=== PATIENT | male | born 1945 | race Caucasian/White ===

== ENCOUNTER 2024-09-10 01:38 | Observation (INO) | payer MEDICARE, OTHER ==
--- NOTE | 2024-09-10 02:41 | ED ---
Weakness HPI - General Chief complaint: Weakness Stated complaint: Weakness Time Seen by Provider: 09/10/24 02:16 Source: patient, EMS Mode of arrival: EMS - History of Present Illness Initial comments: This patient is an 79-year-old man who complains that he is feeling fatigued, having generalized weakness and feels like he is vibrating. The patient also states that he intermittently will have symptoms that feel like his epigastric area is tightening and going into his chest. Patient had similar episode on Friday and was seen at the [facility] in [place]. He states that he had CT of the brain, x-ray chest and labs and was then treated for suspected pneumonia. MD Complaint: generalized weakness, lack of energy, difficulty walking -: days(s) Location: generalized Consistency: intermittent Improves with: none Worsens with: none Associated Symptoms: chest pain, other - Related Data Allergies Allergy/AdvReac Type Severity Reaction Status Date / Time Penicillins Allergy Swelling Verified 09/10/24 01:48 Review of Systems ROS Statement: Those systems with pertinent positive or pertinent negative responses have been documented in the HPI. ROS Other: All systems not noted in ROS Statement are negative. Constitutional: Reports: weakness. Denies: fever, chills Eyes: Reports: vision change Respiratory: Reports: cough. Denies: dyspnea Cardiovascular: Reports: chest pain. Denies: palpitations, orthopnea, edema, syncope Gastrointestinal: Reports: abdominal pain. Denies: nausea, vomiting, diarrhea Genitourinary: Denies: dysuria, hematuria Musculoskeletal: Denies: back pain Skin: Denies: rash Neurological: Denies: headache, weakness Past Medical History Past Medical History: No Reported History History of Any Multi-Drug Resistant Organisms: None Reported Past Surgical History: Hernia Repair, Tonsillectomy Additional Past Surgical History / Comment(s): Hemorroid removal Past Psychological History: No Psychological Hx Reported Smoking Status: Light tobacco smoker Past Alcohol Use History: None Reported Past Drug Use History: None Reported General Exam General appearance: alert, in no apparent distress Head exam: Present: atraumatic, normocephalic Eye exam: Present: normal appearance. Absent: scleral icterus, conjunctival injection ENT exam: Present: normal oropharynx Neck exam: Present: normal inspection Respiratory exam: Present: normal lung sounds bilaterally. Absent: respiratory distress, wheezes, rales, rhonchi, stridor, accessory muscle use Cardiovascular Exam: Present: regular rate, normal rhythm, normal heart sounds. Absent: systolic murmur, diastolic murmur, rubs, gallop GI/Abdominal exam: Present: soft. Absent: distended, tenderness, guarding, rebound, rigid, mass Extremities exam: Present: normal inspection, normal capillary refill. Absent: pedal edema, calf tenderness Back exam: Present: normal inspection. Absent: CVA tenderness (R), CVA tenderness (L) Neurological exam: Present: alert Skin exam: Present: warm, dry, intact, normal color. Absent: rash Course Vital Signs 09/10/24 09/10/24 09/10/24 01:41 03:26 04:16 Temperature 97.3 F L Pulse Rate 66 72 67 Respiratory 18 16 16 Rate Blood Pressure 127/78 142/104 147/88 O2 Sat by Pulse 95 96 96 Oximetry 09/10/24 09/10/24 09/10/24 05:04 06:09 07:30 Temperature 97.5 F L Pulse Rate 62 61 67 Respiratory 16 16 18 Rate Blood Pressure 116/89 132/92 130/86 O2 Sat by Pulse 95 94 L 97 Oximetry EKG Findings - EKG Results: EKG: interpreted by ERMD, sinus rhythm (Rate 71 bpm) - Blocks, [place], Hypertrophy, ST Abn: AV and intraventricular conduction: right bundle branch block (fixed/intermittent, complete/incomplete) QRS axis and voltage: left axis deviation (-30 to -90) Medical Decision Making - Lab Data Result diagrams: 09/10/24 02:47 09/10/24 02:47 Lab Results 09/10/24 09/10/24 09/10/24 Range/Units 02:47 02:47 02:47 WBC 7.3 (3.8-10.6) k/uL RBC 4.40 (4.30-5.90) m/uL Hgb 15.1 (13.0-17.5) gm/dL Hct 44.2 (39.0-53.0) % MCV 100.6 H (80.0-100.0) fL MCH 34.3 (25.0-35.0) pg MCHC 34.1 (31.0-37.0) g/dL RDW 12.5 (11.5-15.5) % Plt Count 166 (150-450) k/uL MPV 7.5 Neutrophils % 57 % Lymphocytes % 32 % Monocytes % 7 % Eosinophils % 2 % Basophils % 1 % Neutrophils # 4.2 (1.3-7.7) k/uL Lymphocytes # 2.4 (1.0-4.8) k/uL Monocytes # 0.5 (0-1.0) k/uL Eosinophils # 0.1 (0-0.7) k/uL Basophils # 0.1 (0-0.2) k/uL PT 11.0 (10.0-12.5) sec INR 1.0 (<1.2) APTT 25.6 (22.0-30.0) sec Sodium 138 (137-145) mmol/L Potassium 4.7 (3.5-5.1) mmol/L Chloride 104 (98-107) mmol/L Carbon Dioxide 22 (22-30) mmol/L Anion Gap 12 mmol/L BUN 14 (9-20) mg/dL Creatinine 0.86 (0.66-1.25) mg/dL Est GFR (CKD-EPI)AfAm >90 (>60 ml/min/1.73 sqM) Est GFR (CKD-EPI)NonAf 82 (>60 ml/min/1.73 sqM) Glucose 87 (74-99) mg/dL Plasma Lactic Acid [place] (0.7-2.0) mmol/L Calcium 9.3 (8.4-10.2) mg/dL Magnesium 2.0 (1.6-2.3) mg/dL Total Bilirubin 0.6 (0.2-1.3) mg/dL AST 27 (17-59) U/L ALT 20 (4-49) U/L Alkaline Phosphatase 42 (38-126) U/L Troponin I (0.000-0.034) ng/mL Total Protein 8.1 (6.3-8.2) g/dL Albumin 4.5 (3.5-5.0) g/dL TSH 13.900 H (0.465-4.680) mIU/L Urine Color Urine Appearance (Clear) Urine pH (5.0-8.0) Ur Specific [place] (1.001-1.035) Urine Protein (Negative) Urine Glucose (UA) (Negative) Urine Ketones (Negative) Urine Blood (Negative) Urine Nitrite (Negative) Urine Bilirubin (Negative) Urine Urobilinogen (<2.0) mg/dL Ur Leukocyte Esterase (Negative) Influenza Type A (PCR) (Not Detectd) Influenza Type B (PCR) (Not Detectd) RSV (PCR) (Not Detectd) SARS-CoV-2 (PCR) (Not Detectd) 09/10/24 09/10/24 09/10/24 Range/Units 02:47 02:47 02:47 WBC (3.8-10.6) k/uL RBC (4.30-5.90) m/uL Hgb (13.0-17.5) gm/dL Hct (39.0-53.0) % MCV (80.0-100.0) fL MCH (25.0-35.0) pg MCHC (31.0-37.0) g/dL RDW (11.5-15.5) % Plt Count (150-450) k/uL MPV Neutrophils % % Lymphocytes % % Monocytes % % Eosinophils % % Basophils % % Neutrophils # (1.3-7.7) k/uL Lymphocytes # (1.0-4.8) k/uL Monocytes # (0-1.0) k/uL Eosinophils # (0-0.7) k/uL Basophils # (0-0.2) k/uL PT (10.0-12.5) sec INR (<1.2) APTT (22.0-30.0) sec Sodium (137-145) mmol/L Potassium (3.5-5.1) mmol/L Chloride (98-107) mmol/L Carbon Dioxide (22-30) mmol/L Anion Gap mmol/L BUN (9-20) mg/dL Creatinine (0.66-1.25) mg/dL Est GFR (CKD-EPI)AfAm (>60 ml/min/1.73 sqM) Est GFR (CKD-EPI)NonAf (>60 ml/min/1.73 sqM) Glucose (74-99) mg/dL Plasma Lactic Acid [place] 1.4 (0.7-2.0) mmol/L Calcium (8.4-10.2) mg/dL Magnesium (1.6-2.3) mg/dL Total Bilirubin (0.2-1.3) mg/dL AST (17-59) U/L ALT (4-49) U/L Alkaline Phosphatase (38-126) U/L Troponin I <0.012 (0.000-0.034) ng/mL Total Protein (6.3-8.2) g/dL Albumin (3.5-5.0) g/dL TSH (0.465-4.680) mIU/L Urine Color Urine Appearance (Clear) Urine pH (5.0-8.0) Ur Specific [place] (1.001-1.035) Urine Protein (Negative) Urine Glucose (UA) (Negative) Urine Ketones (Negative) Urine Blood (Negative) Urine Nitrite (Negative) Urine Bilirubin (Negative) Urine Urobilinogen (<2.0) mg/dL Ur Leukocyte Esterase (Negative) Influenza Type A (PCR) Not Detected (Not Detectd) Influenza Type B (PCR) Not Detected (Not Detectd) RSV (PCR) Not Detected (Not Detectd) SARS-CoV-2 (PCR) Not Detected (Not Detectd) 09/10/24 Range/Units 03:08 WBC (3.8-10.6) k/uL RBC (4.30-5.90) m/uL Hgb (13.0-17.5) gm/dL Hct (39.0-53.0) % MCV (80.0-100.0) fL MCH (25.0-35.0) pg MCHC (31.0-37.0) g/dL RDW (11.5-15.5) % Plt Count (150-450) k/uL MPV Neutrophils % % Lymphocytes % % Monocytes % % Eosinophils % % Basophils % % Neutrophils # (1.3-7.7) k/uL Lymphocytes # (1.0-4.8) k/uL Monocytes # (0-1.0) k/uL Eosinophils # (0-0.7) k/uL Basophils # (0-0.2) k/uL PT (10.0-12.5) sec INR (<1.2) APTT (22.0-30.0) sec Sodium (137-145) mmol/L Potassium (3.5-5.1) mmol/L Chloride (98-107) mmol/L Carbon Dioxide (22-30) mmol/L Anion Gap mmol/L BUN (9-20) mg/dL Creatinine (0.66-1.25) mg/dL Est GFR (CKD-EPI)AfAm (>60 ml/min/1.73 sqM) Est GFR (CKD-EPI)NonAf (>60 ml/min/1.73 sqM) Glucose (74-99) mg/dL Plasma Lactic Acid [place] (0.7-2.0) mmol/L Calcium (8.4-10.2) mg/dL Magnesium (1.6-2.3) mg/dL Total Bilirubin (0.2-1.3) mg/dL AST (17-59) U/L ALT (4-49) U/L Alkaline Phosphatase (38-126) U/L Troponin I (0.000-0.034) ng/mL Total Protein (6.3-8.2) g/dL Albumin (3.5-5.0) g/dL TSH (0.465-4.680) mIU/L Urine Color Colorless Urine Appearance Clear (Clear) Urine pH 6.5 (5.0-8.0) Ur Specific [place] 1.006 (1.001-1.035) Urine Protein Negative (Negative) Urine Glucose (UA) Negative (Negative) Urine Ketones Negative (Negative) Urine Blood Negative (Negative) Urine Nitrite Negative (Negative) Urine Bilirubin Negative (Negative) Urine Urobilinogen <2.0 (<2.0) mg/dL Ur Leukocyte Esterase Negative (Negative) Influenza Type A (PCR) (Not Detectd) Influenza Type B (PCR) (Not Detectd) RSV (PCR) (Not Detectd) SARS-CoV-2 (PCR) (Not Detectd) Disposition Referrals: Nonstaff,Physician [REFERRING] - 1-2 days
[2024-09-10 03:11] LABS: ALT 20 U/L (4-49); AST 27 U/L (17-59); African American GFR (CKD) >90 (>60 ml/min/1.73 sqM); Albumin 4.5 g/dL (3.5-5.0); Alkaline Phosphatase 42 U/L (38-126); Anion Gap 12 mmol/L; Blood Urea Nitrogen 14 mg/dL (9-20); Calcium 9.3 mg/dL (8.4-10.2); Carbon Dioxide 22 mmol/L (22-30); Chloride 104 mmol/L (98-107); Glucose 87 mg/dL (74-99); Non-African American GFR(CKD) 82 (>60 ml/min/1.73 sqM); Sodium 138 mmol/L (137-145); Total Bilirubin 0.6 mg/dL (0.2-1.3); Total Protein 8.1 g/dL (6.3-8.2)
[2024-09-10 03:15] LABS: Basophils # (A) 0.1 k/uL (0-0.2); Basophils % (A) 1 %; Eosinophils # (A) 0.1 k/uL (0-0.7); Eosinophils % (A) 2 %; HCT 44.2 % (39.0-53.0); HGB 15.1 gm/dL (13.0-17.5); Lymphocytes # (A) 2.4 k/uL (1.0-4.8); Lymphocytes % (A) 32 %; MCH 34.3 pg (25.0-35.0); MCHC 34.1 g/dL (31.0-37.0); MCV 100.6 fL (80.0-100.0); Mean Platelet Volume 7.5; Monocytes # (A) 0.5 k/uL (0-1.0); Monocytes % (A) 7 %; Neutrophils # (A) 4.2 k/uL (1.3-7.7); Neutrophils % (A) 57 %; Platelet Count 166 k/uL (150-450); RDW 12.5 % (11.5-15.5); WBC 7.3 k/uL (3.8-10.6)
[2024-09-10 03:37] LABS: Influenza A Not Detected (Not Detectd); Influenza B Not Detected (Not Detectd); RSV Not Detected (Not Detectd)
[2024-09-10 03:55] LABS: Potassium 4.7 mmol/L (3.5-5.1)
[2024-09-10 03:58] LABS: Appearance,Urine Clear (Clear); Bilirubin,Urine Negative (Negative); Blood,Urine Negative (Negative); Color,Urine Colorless; Glucose,Urine (UA) Negative (Negative); Ketones,Urine Negative (Negative); Leukocyte Esterase,Urine Negative (Negative); Nitrite,Urine Negative (Negative); PH, Urine 6.5 (5.0-8.0); Protein,Urine Negative (Negative); Specific Gravity,Urine 1.006 (1.001-1.035); Urobilinogen,Urine <2.0 mg/dL (<2.0)
--- NOTE | 2024-09-10 04:08 | XR ---
EXAM: XR Chest, 2 Views CLINICAL HISTORY: ITS.REASON XR Reason: Weakness TECHNIQUE: Frontal and lateral views of the chest. COMPARISON: No relevant prior studies available. IMPRESSION: Mild left pleural effusion
[2024-09-10 04:24] LABS: Partial Thromboplastin Time 25.6 sec (22.0-30.0)
--- NOTE | 2024-09-10 07:14 | CT ---
EXAMINATION TYPE: CT abdomen pelvis wo con DATE OF EXAM: 09/10/2024 6:07 AM COMPARISON: None. CLINICAL INDICATION: Male, 79 years old with history of epigastric pains; EPIGASTRIC PAIN TECHNIQUE: Axial CT abdomen pelvis wo con;Sagittal and coronal reformats were created on a separate workstation. Contrast used: mL of , (none if empty) Oral contrast used: without Oral Contrast (none if empty) CT DLP: 634.3 mGycm, Automated exposure control for dose reduction was used. FINDINGS: LOWER CHEST: Streaky atelectasis in the lung bases ABDOMEN LIVER: Unremarkable GALLBLADDER AND BILE DUCTS: Unremarkable. PANCREAS: Unremarkable. SPLEEN: Unremarkable. ADRENAL GLANDS: Unremarkable. KIDNEYS AND URETERS: No evidence of hydronephrosis or renal calculus. The ureters are unremarkable. PELVIS BLADDER: No evidence for wall thickening or mass given limitations of exam. REPRODUCTIVE: Prostate is enlarged in size measuring 5.1 cm in transverse dimension. ABDOMEN & PELVIS STOMACH AND BOWEL: No evidence of bowel obstruction. Scattered colonic diverticula. Small hiatal cinthia ia. PERITONEUM/RETROPERITONEUM: No evidence of pneumoperitoneum or free fluid. VASCULATURE: No evidence of aortic aneurysm. MUSCULOSKELETAL: No acute osseous abnormalities LYMPH NODES: No gross evidence for lymphadenopathy. SOFT TISSUE/ABDOMINAL WALL: Fat containing umbilical hernia. IMPRESSION: 1. No evidence for acute process to explain patient's pain. 2. Small hiatal hernia. 3. Colonic diverticulosis. 4. Prostatomegaly, correlate with serum PSA. [facility], , 09/10/2024 7:12 AM
[2024-09-10] MEDS ORDERED: MAG HYDROX/AL HYDROX/SIMETH 30 ML CUP PO PRN (07:17)
[2024-09-10] MEDS ORDERED: NITROGLYCERIN SL TABS 0.4 MG TAB SUBLINGUAL PRN (07:39)
--- NOTE | 2024-09-10 13:54 | P.CRDCN ---
History of Present Illness History of present illness: HISTORY OF PRESENT ILLNESS: This is a 79-year-old male with a past medical history significant for hypothyroidism. 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 We have been asked to see the patient in consultation for chest pain. Patient examined at the bedside in the ER. Patient reports he has been getting episodes of his chest warming up and feels like his chest is vibrating. He states the sensation starts in the legs and goes all the way into his neck. He reports mild chest pressure. Denies SOB. He states his legs feel like weight. Patient states he was started on thyroid medications about 8-9 days ago. Denies HTN, HLD, or DM. Denies smoking or alcohol. DIAGNOSTICS: - EKG reveals sinus mechanism with right bundle branch block - Chest xray mild left pleural effusion - CT abdomen pelvis: No evidence for acute process. Small hiatal hernia. Colonic diverticulosis. Prostatomegaly. - Laboratory data: WBC 7.3. Hemoglobin 15.1. Platelet count 166. Sodium 138. Potassium 4.7. BUN 14. Creatinine 0.86. Magnesium 2.0. TSH 13.9 - Current home cardiac medications include none. - No previous echocardiogram, stress test, or cardiac catheterization available in EMR for review REVIEW OF SYSTEMS: At the time of my exam: CONSTITUTIONAL: Denies fever or chills. HEENT: Denies blurred vision, vision changes, or eye pain. Denies hemoptysis CARDIOVASCULAR: Denies chest pain. Denies orthopnea. Denies PND. Denies pyalpitations RESPIRATORY: Denies shortness of breath. GASTROINTESTINAL: Denies abdominal pain. Denies nausea or vomiting. HEMATOLOGIC: Denies bleeding disorders. GENITOURINARY: Denies any blood in urine. SKIN: Denies pruitis. Denies rash. PHYSICAL EXAM: VITAL SIGNS: Reviewed. GENERAL: Well-developed in no acute distress. HEENT: Head is normocephalic. Pupils are equal, round. Sclerae anicteric. Mucous membranes of the mouth are moist. Neck supple. No JVD or thyromegaly LUNGS: Respirations even and unlabored. Lungs essentially clear to auscultation bilaterally. HEART: Regular rate and rhythm. S1 and S2 heard. + systolic murmur. ABDOMEN: Soft. Nondistended. Nontender. EXTREMITIES: Normal range of motion. No clubbing or cyanosis. Peripheral pulses intact. No lower extremity edema NEUROLOGIC: Awake and alert. Oriented x 3. ASSESSMENT: Chest pain with generalized warmth and "vibrating sensations", atypical for ACS, troponin negative x 2 Hypothyroidism with abnormal TSH 13.9 PLAN: An acute coronary event has been ruled out Obtain 2D echo to assess cardiac structure and function Decrease aspirin to 81mg daily No plans for inpatient stress testing or cardiac catheterization Further recommendations pending patient course Nurse practitioner note has been reviewed by physician. Signing provider agrees with the documented findings, assessment, and plan of care documented by [employer] as a scribe. Past Medical History Past Medical History: No Reported History History of Any Multi-Drug Resistant Organisms: None Reported Past Surgical History: Hernia Repair, Tonsillectomy Additional Past Surgical History / Comment(s): Hemorroid removal Past Psychological History: No Psychological Hx Reported Smoking Status: Light tobacco smoker Past Alcohol Use History: None Reported Past Drug Use History: None Reported Medications and Allergies Home Medications Medication Instructions Recorded Confirmed Type Levothyroxine Sodium [Synthroid] 25 mcg PO QAM 09/10/24 09/10/24 History Allergies Allergy/AdvReac Type Severity Reaction Status Date / Time Penicillins Allergy see comment Verified 09/10/24 09:02 Physical Exam Vitals: Vital Signs Temp Pulse Resp BP Pulse Ox 09/10/24 07:30 67 18 130/86 97 09/10/24 06:09 97.5 F L 61 16 132/92 94 L 09/10/24 05:04 62 16 116/89 95 09/10/24 04:16 67 16 147/88 96 09/10/24 03:26 72 16 142/104 96 09/10/24 01:41 97.3 F L 66 18 127/78 95 Intake and Output 09/09/24 09/10/24 09/10/24 22:59 06:59 14:59 Other: Weight 81.647 kg Results 09/10/24 02:47 09/10/24 02:47 Cardiac Enzymes 09/10/24 09/10/24 Range/Units 02:47 02:47 AST 27 (17-59) U/L Troponin I <0.012 (0.000-0.034) ng/mL Coagulation 09/10/24 Range/Units 02:47 PT 11.0 (10.0-12.5) sec APTT 25.6 (22.0-30.0) sec CBC 09/10/24 Range/Units 02:47 WBC 7.3 (3.8-10.6) k/uL RBC 4.40 (4.30-5.90) m/uL Hgb 15.1 (13.0-17.5) gm/dL Hct 44.2 (39.0-53.0) % Plt Count 166 (150-450) k/uL Comprehensive Metabolic Panel 09/10/24 Range/Units 02:47 Sodium 138 (137-145) mmol/L Potassium 4.7 (3.5-5.1) mmol/L Chloride 104 (98-107) mmol/L Carbon Dioxide 22 (22-30) mmol/L BUN 14 (9-20) mg/dL Creatinine 0.86 (0.66-1.25) mg/dL Glucose 87 (74-99) mg/dL Calcium 9.3 (8.4-10.2) mg/dL AST 27 (17-59) U/L ALT 20 (4-49) U/L Alkaline Phosphatase 42 (38-126) U/L Total Protein 8.1 (6.3-8.2) g/dL Albumin 4.5 (3.5-5.0) g/dL Current Medications Generic Name Dose Route Start Last Admin Trade Name Freq PRN Reason Stop Dose Admin Al Hydroxide/Mg Hydroxide 30 ml 09/10/24 07:17 Mag Hydrox/Al Hydrox/Simeth 30 Ml Cup PO Q4HR PRN GI Upset Aspirin 325 mg 09/11/24 09:00 Aspirin 325 Mg Tab PO DAILY ZORAIDA Nitroglycerin 0.4 mg 09/10/24 07:39 Nitroglycerin Sl Tabs 0.4 Mg Tab SUBLINGUAL Q5M PRN Chest Pain Intake and Output 09/09/24 09/10/24 09/10/24 22:59 06:59 14:59 Other: Weight 81.647 kg 09/10/24 02:47 09/10/24 02:47
[2024-09-11] MEDS: ASPIRIN 81 MG PO SCH (08:51)
[2024-09-11] MEDS ORDERED: ASPIRIN 325 MG TAB PO SCH (09:00)
[2024-09-11 10:32] LABS: Chol/HDL Ratio 4.37 Ratio; LDL Cholesterol,Calculated 76.3 mg/dL (0.0-131.0)
--- NOTE | 2024-09-11 20:38 | P.HPIM ---
History of Present Illness This is a pleasant 79 years old male who presents because of chest pain Patient states his chest pain about 9/10 was going on since June, it is in the middle of the chest, currently improved. No significant precipitating or relieving factor, nonspecific. Patient currently denies dyspnea or coughing. No specific GI or symptoms no dysuria or urgency or hesitancy No dyspnea no coughing Patient does not feel anxious Appetite with an average Vitals look stable, afebrile Patient has unremarkable CBC, BMP, LFT, INR, troponin, urine analysis Influenza and COVID test is came back are reactive TSH is elevated at 13.9 Free T4 is normal 0.9 EKG showing sinus rhythm at [address]-T changes CT of the abdomen and pelvis: No acute process, small hiatal hernia, colon diverticulosis and a large prostate Echocardiogram pending Review of Systems Review of systems CONSTITUTIONAL: No fever, no malaise, no fatigue. HEENT: No recent visual problems or hearing problems. Denied any sore throat. CARDIOVASCULAR: No orthopnea, PND, no palpitations, no syncope. PULMONARY: No shortness of breath, no cough, no hemoptysis. GASTROINTESTINAL: No diarrhea, no nausea, no vomiting, no abdominal pain. Normoa ctive bowel sounds. NEUROLOGICAL: No headaches, no weakness, no numbness. HEMATOLOGICAL: Denies any bleeding or petechiae. GENITOURINARY: Denies any burning micturition, frequency, or urgency. MUSCULOSKELETAL/RHEUMATOLOGICAL: Denies any joint pain, swelling, or any muscle pain. ENDOCRINE: Denies any polyuria or polydipsia. Past Medical History Past Medical History: No Reported History History of Any Multi-Drug Resistant Organisms: None Reported Past Surgical History: Hernia Repair, Tonsillectomy Additional Past Surgical History / Comment(s): Hemorroid removal Past Anesthesia/Blood Transfusion Reactions: No Reported Reaction Past Psychological History: No Psychological Hx Reported Smoking Status: Light tobacco smoker Past Alcohol Use History: None Reported Past Drug Use History: None Reported Medications and Allergies Home Medications Medication Instructions Recorded Confirmed Type Levothyroxine Sodium [Synthroid] 25 mcg PO QAM 09/10/24 09/10/24 History Allergies Allergy/AdvReac Type Severity Reaction Status Date / Time Penicillins Allergy see comment Verified 09/10/24 09:02 Physical Exam Vitals: Vital Signs Temp Pulse Pulse Resp BP BP Pulse Ox 09/11/24 07:25 98.3 F 53 L 16 95/59 93 L 09/11/24 02:57 76 16 09/11/24 02:00 97.3 F L 76 16 100/64 94 L 09/10/24 22:48 97.5 F L 60 18 122/64 95 09/10/24 22:00 70 18 118/80 92 L 09/10/24 20:00 68 17 101/83 91 L 09/10/24 17:42 62 18 110/71 93 L 09/10/24 13:45 97.8 F 82 18 138/82 93 L 09/10/24 12:29 56 L 18 113/82 96 09/10/24 11:26 70 18 109/86 95 Intake and Output 09/10/24 09/11/24 09/11/24 22:59 06:59 14:59 Other: Voiding Method Toilet # Voids 2 Weight 81.647 kg Results CBC & Chem 7: 09/10/24 02:47 09/10/24 02:47 Labs: Abnormal Lab Results - Last 24 Hours (Table) 09/11/24 Range/Units 04:50 HDL Cholesterol 29.30 L (40.00-60.00) mg/dL Thrombosis Risk Factor Assmnt - Choose All That Apply Any of the Below Risk Factors Present?: Yes Each Factor Represents 1 point: Obesity (BMI >25) Other Risk Factors: No Other congenital or acquired thrombophilia - If yes, enter type in comment: No Thrombosis Risk Factor Assessment Total Risk Factor Score: 1 Thrombosis Risk Factor Assessment Level: Low Risk Assessment and Plan Assessment: Chest pain, most likely musculoskeletal or related to hormonal effect rule out cardiac causes Hypothyroidism with elevated TSH, uncontrolled Enlarged prostate Plan: Follow-up echocardiogram Continue with aspirin 81 mg Cardiology consult Increase levothyroxine 25 mcg up to 50 mcg Check thyroid function test in 2 to 3 months Follow-up outpatient Labs and medication were reviewed.. Continue same treatment. Continue with symptomatic treatment. Resume home medication. Monitor labs and vitals. DVT and GI prophylaxis. Further recommendations as per clinical course of the patient DVT prophylaxis: Subcutaneous heparin GI Prophylaxis: Pepcid Prognosis is guarded
[2024-09-11] MEDS: FAMOTIDINE 20 MG/2 ML VIAL IV SCH (21:30)
[2024-09-11] MEDS: HEPARIN SODIUM,PORCINE 5,000 UNIT/ML 1 ML VIAL SQ SCH (21:30)
--- NOTE | 2024-09-11 23:55 | P.PN ---
Subjective Progress Note Date: 09/11/24 HISTORY OF PRESENT ILLNESS: This is a 79-year-old male with a past medical history significant for hypo thyroidism. Patient does not follow with a steam engineer. We have been asked to see the patient in consultation for chest pain. Patient examined at the bedside in the ER. Patient reports he has been getting episodes of his chest warming up and feels like his chest is vibrating. He states the sensation starts in the legs and goes all the way into his neck. He reports mild chest pressure. Denies SOB. He states his legs feel like weight. Patient states he was started on thyroid medications about 8-9 days ago. Denies HTN, HLD, or DM. Denies smoking or alcohol. DIAGNOSTICS: - EKG reveals sinus mechanism with right bundle branch block - Chest xray mild left pleural effusion - CT abdomen pelvis: No evidence for acute process. Small hiatal hernia. Colonic diverticulosis. Prostatomegaly. - Laboratory data: WBC 7.3. Hemoglobin 15.1. Platelet count 166. Sodium 138. Potassium 4.7. BUN 14. Creatinine 0.86. Magnesium 2.0. TSH 13.9 - Current home cardiac medications include none. - No previous echocardiogram, stress test, or cardiac catheterization available in EMR for review Progress note 09/11/2024 Patient is seen and examined at bedside this a.m. Patient reports that he is fe eling a bit better. However he still has some nonspecific substernal chest pressure-like symptoms. Echocardiogram still awaited. PHYSICAL EXAM: VITAL SIGNS: Reviewed. GENERAL: Well-developed in no acute distress. HEENT: Head is normocephalic. Pupils are equal, round. Sclerae anicteric. Mucous membranes of the mouth are moist. Neck supple. No JVD or thyromegaly LUNGS: Respirations even and unlabored. Lungs essentially clear to auscultation bilaterally. HEART: Regular rate and rhythm. S1 and S2 heard. + systolic murmur. ABDOMEN: Soft. Nondistended. Nontender. EXTREMITIES: Normal range of motion. No clubbing or cyanosis. Peripheral pulses intact. No lower extremity edema NEUROLOGIC: Awake and alert. Oriented x 3. ASSESSMENT: Chest pain with generalized warmth and "vibrating sensations", atypical for ACS, troponin negative x 2 Hypothyroidism with abnormal TSH 13.9 PLAN: An acute coronary event has been ruled out Obtain 2D echo to assess cardiac structure and function Decrease aspirin to 81mg daily No plans for inpatient stress testing or cardiac catheterization Further recommendations pending patient course Objective - Vital Signs Vital signs: Vital Signs Temp 97.9 F 09/11/24 20:00 Pulse 66 09/11/24 21:30 Resp 17 09/11/24 21:30 BP 100/63 09/11/24 20:00 Pulse Ox 91 L 09/11/24 20:00 FiO2 Intake & Output 09/11/24 09/11/24 09/12/24 06:59 18:59 06:59 Intake Total 118 Balance 118 Weight 81.647 kg Intake: Oral 118 Other: Voiding Method Toilet Toilet Toilet # Voids 2 3 2 - Labs CBC & Chem 7: 09/10/24 02:47 09/10/24 02:47 Labs: Abnormal Lab Results - Last 24 Hours (Table) 09/11/24 Range/Units 04:50 HDL Cholesterol 29.30 L (40.00-60.00) mg/dL
[2024-09-12] MEDS: LEVOTHYROXINE 50 MCG TAB PO SCH (06:03)
[2024-09-12] MEDS ORDERED: LEVOTHYROXINE 25 MCG TAB PO SCH (06:30)
[2024-09-12 08:27] VITALS: RESP 16
--- NOTE | 2024-09-12 09:18 | P.PN ---
Subjective Progress Note Date: 09/12/24 HISTORY OF PRESENT ILLNESS: This is a 79-year-old male with a past medical history significant for hypot hyroidism. Patient does not follow with a medical genetics director. We have been asked to see the patient in consultation for chest pain. Patient examined at the bedside in the ER. Patient reports he has been getting episodes of his chest warming up and feels like his chest is vibrating. He states the sensation starts in the legs and goes all the way into his neck. He reports mild chest pressure. Denies SOB. He states his legs feel like weight. Patient states he was started on thyroid medications about 8-9 days ago. Denies HTN, HLD, or DM. Denies smoking or alcohol. Progress note 09/11/2024 Patient is seen and examined at bedside this a.m. Patient reports that he is feeling a bit better. However he still has some nonspecific substernal chest pressure-like symptoms. Echocardiogram still awaited. 09/12/2024 BP 108/65, heart rate 57 bpm, echocardiogram is awaited, No acute events overnight. Patient reports feeling better PHYSICAL EXAM: VITAL SIGNS: Reviewed. GENERAL: Well-developed in no acute distress. HEENT: Head is normocephalic. Pupils are equal, round. Sclerae anicteric. Mucous membranes of the mouth are moist. Neck supple. No JVD or thyromegaly LUNGS: Respirations even and unlabored. Lungs essentially clear to auscultation bilaterally. HEART: Regular rate and rhythm. S1 and S2 heard. + systolic murmur. ABDOMEN: Soft. Nondistended. Nontender. EXTREMITIES: Normal range of motion. No clubbing or cyanosis. Peripheral pulses intact. No lower extremity edema NEUROLOGIC: Awake and alert. Oriented x 3. ASSESSMENT: Chest pain with generalized warmth and "vibrating sensations", atypical for ACS, troponin negative x 2 Hypothyroidism with abnormal TSH 13.9 PLAN: An acute coronary event has been ruled out Obtain 2D echo to assess cardiac structure and function Decrease aspirin to 81mg daily No plans for inpatient stress testing or cardiac catheterization Further recommendations pending patient course Objective - Vital Signs Vital signs: Vital Signs Temp 97.6 F 09/12/24 07:00 Pulse 57 L 09/12/24 07:00 Resp 16 09/12/24 07:00 BP 108/65 09/12/24 07:00 Pulse Ox 91 L 09/12/24 07:00 FiO2 Intake & Output 09/11/24 09/12/24 09/12/24 18:59 06:59 18:59 Intake Total 118 Balance 118 Intake: Oral 118 Other: Voiding Method Toilet Toilet # Voids 3 3 - Labs CBC & Chem 7: 09/10/24 02:47 09/10/24 02:47 Labs: Abnormal Lab Results - Last 24 Hours (Table) 09/11/24 Range/Units 04:50 HDL Cholesterol 29.30 L (40.00-60.00) mg/dL
--- NOTE | 2024-09-12 15:19 | CA ---
Transthoracic Echo Report Name: Jacob Ford Age: 79 Gender: M : 1945 Exam Date: 09/12/2024 09:26 Exam Location: [facility] Ht (in): 66 Wt (lb): 180 Ordering Physician: Jo Ann Shaver Attending/Referring Phys: [id number], Sivakumar [employer] Production Machine Operator Dalila Aceves RDCS Procedure CPT: Indications: LV function, chest pain, Angina pectoris, unspecified Cardiac Hx: Technical Quality: Fair Contrast 1: Total Dose (mL): Contrast 2: Total Dose (mL): MEASUREMENTS (Male / Female) Normal Values 2D ECHO LV Diastolic Diameter PLAX 4.7 cm 4.2 - 5.9 / 3.9 - 5.3 cm LV Systolic Diameter PLAX 3.4 cm IVS Diastolic Thickness 0.6 cm 0.6 - 1.0 / 0.6 - 0.9 cm LVPW Diastolic Thickness 1.0 cm 0.6 - 1.0 / 0.6 - 0.9 cm LV Relative Wall Thickness 0.3 LVOT Diameter 2.5 cm LA Volume 49.9 cm??? 18 - 58 / 22 - 52 cm??? LA Volume Index 25.3 cm???/m??? 16 - 28 cm???/m??? DOPPLER AV Peak Velocity 148.5 cm/s AV Peak Gradient 8.8 mmHg AV Mean Velocity 99.9 cm/s AV Mean Gradient 4.5 mmHg AV Velocity Time Integral 27.0 cm LVOT Peak Velocity 87.9 cm/s LVOT Peak Gradient 3.1 mmHg LVOT Velocity Time Integral 16.6 cm LVOT Stroke Volume 83.3 cm??? LVOT Stroke Volume Index 43.5 ml/m??? LVOT Cardiac Index 2365.0 cm???/min???m??? AV Area Cont Eq vti 3.1 cm??? AV Area Cont Eq pk 3.0 cm??? MV Area PHT 3.2 cm??? Mitral E Point Velocity 43.9 cm/s Mitral A Point Velocity 52.7 cm/s Mitral E to A Ratio 0.8 MV Deceleration Time 236.2 ms TR Peak Velocity 230.5 cm/s TR Peak Gradient 21.2 mmHg Right Atrial Pressure 5.0 mmHg Pulmonary Artery Systolic Pressu 26.2 mmHg Right Ventricular Systolic Press 26.2 mmHg PV Peak Velocity 143.6 cm/s PV Peak Gradient 8.2 mmHg FINDINGS Left Ventricle Left ventricular ejection fraction is estimated at 55 %. Left ventricular cavity size normal. Left ventricular wall thickness normal. No obvious regional wall motion abnormalities. Right Ventricle Right ventricle not well visualized. Right ventricular systolic pressure within normal limits. Right Atrium Right atrium not well visualized. Left Atrium Normal left atrial size. Mitral Valve Structurally normal mitral valve. No mitral stenosis, regurgitation or prolapse. Aortic Valve Trileaflet aortic valve. No aortic valve stenosis or regurgitation. Tricuspid Valve Structurally normal tricuspid valve. No tricuspid stenosis. Mild tricuspid regurgitation. Pulmonic Valve Structurally normal pulmonic valve. No pulmonic stenosis. Mild pulmonic regurgitation. Pericardium No pericardial effusion. Aorta Normal size aortic root and proximal ascending aorta. CONCLUSIONS LVEF 55 to 60% No obvious regional wall motion abnormality No significant valvular dysfunction No pericardial effusion Previewed by: Dr Malcom Mcdermott (Electronically Signed) Final Date: 12 September 2024 15:18
[2024-09-12 16:18] VITALS: BP 112/69; PULSE 58; TEMP 98.3
[2024-09-12] MEDS ORDERED: FAMOTIDINE 20 MG TAB PO SCH (21:00)
--- NOTE | 2024-09-12 22:33 | P.DS ---
Providers Date of admission: 09/10/24 07:40 Attending physician: Brittanie Matos MD Consults: 09/10/24 07:40 Consult Physician Routine Consulting Provider: Gilberto Coello Consult Reason/Comments: chest pain Do you want consulting provider notified?: Yes Primary care physician: [facility] Hospital Course: Diagnoses Chest pain, most likely musculoskeletal or related to hormonal effect rule out cardiac causes Hypothyroidism with elevated TSH, uncontrolled Enlarged prostate Hospital course: This is a pleasant 79 years old male who presents because of chest pain Patient states his chest pain about 9/10 was going on since June, it is in the middle of the chest, currently improved. Patient evaluated by line supply. Echocardiogram showed ejection fraction preserved at 55%. Patient chest pain improved. Patient denies any other new complaint Patient informed about his enlarged prostate and the need to follow-up with urologist and he agrees Patient was cleared for discharge by line supply Problems and management plan were discussed with the patient and he verbalized understanding and acceptance Patient was found stable and can be discharged home in guarded prognosis however he needs follow-up as an outpatient. Patient was instructed to follow up with PCP Dr. Reddy within one week and patient agrees Patient was instructed to follow-up with Dr. Wells in 1 week and he agrees. And with Dr. Navas in 1 week and he agrees Patient sometimes feels like electrical shock feeling while he is eating, patient was also referred to neurologist Dr. Alvarez or in 2 weeks and he agrees Physical exam Gen: patient is a AAOx3, no distress CVS: S1-S2, RRR, no murmur Lungs: B/L CTA, no wheezing Abdomen: soft, no distention, no tenderness, positive bowel sounds Extremity: no leg edema or induration Time spent more than 35 minutes Plan - Discharge Summary Discharge Rx Participant: No New Discharge Prescriptions: Continue Levothyroxine Sodium [Synthroid] 25 mcg PO QAM Discharge Medication List Levothyroxine Sodium [Synthroid] 25 mcg PO QAM 09/10/24 [History] Follow up Appointment(s)/Referral(s): Prabha Alvarez MD [REFERRING] - 10 Days (neurologist) George Wright MD [Medical Doctor] - 10 Days (neurologist) Nonstaff,Physician [REFERRING] - 1-2 days Gilberto Coello MD [STAFF PHYSICIAN] - 1 Week Patricio Silverio MD [STAFF PHYSICIAN] - 1 Week (enlarged prostate ) Patient Instructions/Handouts: Chest Pain (DC) Activity/Diet/Wound Care/Special Instructions: Heart healthy diet Activity is restricted till you see your doctor Discharge Disposition: HOME SELF-CARE
== END 2024-09-12 18:38 | disposition home or self-care (01) ==
LOC: EC 01:38 → 6NMEDSUR 07:40
PROVIDERS: ADMIT Internal Medicine; ATTEND Internal Medicine
DX: R07.89 Other chest pain (principal); E03.9 Hypothyroidism, unspecified; R09.89 Other specified symptoms and signs involving the circulatory and respiratory systems; R10.13 Epigastric pain; I45.10 Unspecified right bundle-branch block; K57.30 Diverticulosis of large intestine without perforation or abscess without bleeding; K44.9 Diaphragmatic hernia without obstruction or gangrene; N40.0 Benign prostatic hyperplasia without lower urinary tract symptoms; E66.9 Obesity, unspecified; Z68.29 Body mass index [BMI] 29.0-29.9, adult; F17.200 Nicotine dependence, unspecified, uncomplicated; Z79.890 Hormone replacement therapy; Z88.0 Allergy status to penicillin; Z11.52 Encounter for screening for COVID-19; Z11.59 Encounter for screening for other viral diseases
CPT/HCPCS: 96376; 96372 ×2; 96374; 99285; 36415; 93005 ×2; 93306; 84439; 80061; 80053; 83605; 83735; 84443; 84484; 85025; 85610; 85730; 81003; 87636; 71046; 74176; G0378 ×3; J1644 ×2; J3490 ×2

== ENCOUNTER → 2024-10-15 | Outpatient (CLI) | payer MEDICARE ==
--- NOTE | 2024-10-15 11:03 | FL ---
EXAMINATION TYPE: FL barium swallow DATE OF EXAM: 10/15/2024 9:26 AM COMPARISON: [facility] CT 09/10/2024 CLINICAL INDICATION: Male, 79 years old with history of R10.9 ABD PAIN, K59.09 CONSTIPATION, complain s of difficulty swallowing and sensation of food getting stuck in throat. Total fluoroscopy time: 2 minutes 5 seconds. Total images: 44 Total dose: 150 mGycm2. FINDINGS: The swallowing mechanism is normal. There is anterior endplate spondylosis at C5-C6 and suspected mil d to moderate thickening of the cricopharyngeus at the same level causing prominent impression on the posterior wall of the upper cervical esophagus. Incidentally, there are small bilateral [place] Or[place] eson diverticula just below this level. Thoracic esophagus shows normal course and caliber. No mucosal abnormality is seen or abnormal fillin g defect. There are mild tertiary peristaltic waves. Moderate dysmotility along the mid portion of the thoracic esophagus with contrast stagnating when the patient is prone/supine due to markedly blunted secondar y stripping waves. There is a small hiatal hernia. No gastroesophageal reflux seen to course of the exam. IMPRESSION: 1. Combination of C5-C6 anterior endplate spondylosis and mild to moderate CP muscle hypertrophy caus ing focal impression onto the posterior wall of the upper cervical esophagus. Findings may be contrib uting to the patient's symptoms. 2. Small bilateral [place]an diverticula just below this level. 3. 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 4. Small hiatal hernia but no gastroesophageal reflux seen during the course of the exam. [facility], , 10/15/2024 11:01 AM
== END | disposition home or self-care (01) ==
LOC: RADFLMAIN 08:36
PROVIDERS: ATTEND Family Medicine
DX: K44.9 Diaphragmatic hernia without obstruction or gangrene (principal); K22.5 Diverticulum of esophagus, acquired; K59.09 Other constipation; M47.812 Spondylosis without myelopathy or radiculopathy, cervical region
CPT/HCPCS: 74220